=== PATIENT | female | born 1950 | race Caucasian/White ===

== ENCOUNTER 2022-01-09 07:52 | Outpatient (REF) | payer BC, SELFPAY ==
[2022-01-09 10:56] LABS: Estimated Glomerular Filt Rate > 60
[2022-01-09 11:22] LABS: Vitamin D 25-OH Total 22.2 ng/mL (>30)
[2022-01-11 13:51] LABS: Calcium (PTHI) 9.4 mg/dL (8.6-10.4); PTHI 159 pg/mL (16-77)
== END 2022-01-09 07:53 | disposition home or self-care (01) ==
LOC: HO.10HDL 07:52
PROVIDERS: Visit Provider Internal Medicine Endocrinology, Diabetes & Metabolism
DX: E21.0 Primary hyperparathyroidism (principal)
CPT/HCPCS: 36415; 82040; 82306; 82565; 83970

== ENCOUNTER 2022-04-13 10:19 | Outpatient (REF) | payer BC, SELFPAY ==
[2022-04-13 14:37] LABS: Vitamin D 25-OH Total 33.5 ng/mL (>30)
[2022-04-14 13:37] LABS: Calcium (PTHI) 10.6 mg/dL (8.6-10.4); PTHI 130 pg/mL (16-77)
== END 2022-04-13 10:20 | disposition home or self-care (01) ==
LOC: HO.10HDL 10:19
PROVIDERS: Visit Provider Internal Medicine Endocrinology, Diabetes & Metabolism
DX: E21.0 Primary hyperparathyroidism (principal)
CPT/HCPCS: 36415; 82306; 83970

== ENCOUNTER → 2022-05-11 07:42 | Outpatient (BNVA) | payer BC, SELFPAY | PROVIDERS: PCP Internal Medicine; Visit Provider Internal Medicine Endocrinology, Diabetes & Metabolism | DX: Z13.89 Encounter for screening for other disorder (principal) ==

== ENCOUNTER 2022-11-10 14:44 | Outpatient (REF) | payer BC, SELFPAY ==
--- NOTE | ~2022-11-10 | MM_ITS ---
EXAMINATION: BONE DENSITOMETRY CLINICAL INDICATION: Hyperparathyroidism, unspecified. COMPARISON: This is the patient's baseline examination. TECHNIQUE: Using a [employer] DXA System (software version: 13.1) manufactured by [employer], dual-energy x-ray absorptiometry was performed of the lumbar spine and left hip. The images are of good technical quality. Summary results are attached. FINDINGS: LEFT FEMUR, NECK: BMD 0.618 g/cm2, Z-score -1.7, T-score -3.0, osteoporosis. LEFT FEMUR, TOTAL: BMD 0.706 g/cm2, Z-score -1.3, T-score -2.4, osteopenia. AP SPINE L1-L4: BMD 0.913 g/cm2, Z-score -1.2, T-score -2.2, osteopenia. LEFT FOREARM RADIUS 33%: BMD 0.702 g/cm2, Z-score 0.1, T-score -2.0, osteopenia. IDENTIFIED RISK FACTORS: Height loss, hyperparathyroidism, menopause. HISTORY OF FRACTURE: None listed. MEDICATIONS: Calcium supplements or multivitamin, vitamin D. MM/XR DEXA appendicular skeleton IMPRESSION: 1. DIAGNOSIS: Osteoporosis based on the lowest T-score value of -3.0 in the femoral neck applying World Health Organization criteria. 2. 10-YEAR FRACTURE RISK PREDICTION, FRAX: According to the guidelines, FRAX calculation should only be performed on patients in the osteopenia bone density category. Therefore, FRAX was not performed on this patient. 3. Treatment Recommendations: NOF guidelines recommend consideration for treatment in postmenopausal women and men age 50 and older presenting with the following: -A hip or vertebral (clinical or morphometric) fracture. -T-score less than or equal to -2.5 at the femoral neck or spine after appropriate evaluation to exclude secondary causes. -Low bone mass at the hip or spine and a 10-year fracture probability by FRAX of greater than or equal to 3% for hip fracture or greater than or equal to 20% for major osteoporotic fracture based on the [place] adapted WHO algorithm. 4. Other Recommendations: All treatment decisions require clinical judgment and consideration of individual patient factors, including patient preferences, comorbidities, previous drug use, risk factors not captured in the FRAX model (e.g. frailty, falls, vitamin D deficiency, increased bone turnover, interval significant decline in bone density) and possible under or overestimation of fracture risk by FRAX. Additional medical evaluation for secondary cause of low bone mineral density may be appropriate. FUTURE SCAN RECOMMENDATION: People with diagnosed cases of osteoporosis or at high risk for fracture should have regular bone mineral density tests. For patients eligible for Medicare, routine testing is allowed once every 2 years. The testing frequency can be increased to one year for patients who have rapidly progressing disease, those who are receiving or discontinuing medical therapy to restore bone mass, or have additional risk factors.
== END 2022-11-10 14:45 | disposition home or self-care (01) ==
LOC: HO.MAMMO 14:44
PROVIDERS: PCP Internal Medicine; Visit Provider Internal Medicine Endocrinology, Diabetes & Metabolism
DX: Z13.820 Encounter for screening for osteoporosis (principal); E21.3 Hyperparathyroidism, unspecified; Z78.0 Asymptomatic menopausal state
CPT/HCPCS: 77081

== ENCOUNTER → 2022-11-10 15:00 | Outpatient (BNV) | payer BC, SELFPAY | PROVIDERS: PCP Internal Medicine; Visit Provider Radiology Diagnostic Radiology | DX: M85.89 Other specified disorders of bone density and structure, multiple sites (principal) | CPT/HCPCS: 77080; 77081 ==

== ENCOUNTER 2023-02-20 08:44 | Outpatient (AMB) | payer MEDICARE, SELFPAY ==
--- NOTE | 2023-02-20 08:56 | MHC.OFFVIS ---
Intake Vital Signs 02/20/23 08:57 Height 5 ft 1.14 in BMI Reason not done Patient refused/unable BP 128/84 Blood Pressure Location Lt brachial Position Sitting Pulse 73 Pulse Source Pulse Oximeter Intake Visit Reasons: Post surgery Hyperparathyroidism-CONFIRMED Intake Note: Patient present for Post Surgery Hyperparathyroidism follow up. Biometrics Specialist Required: No Accompanied by: Self / Same As Patient Allergies meperidine [From Demerol] Allergy (Unknown, Verified 02/20/23 08:58) Vomiting morphine Allergy (Unknown, Verified 02/20/23 08:58) Vomiting Medication List - Last Reconciled 02/20/23 by Terry Weinstein MD cholecalciferol (vitamin D3) 50 mcg PO DAILY losartan 25 mg PO DAILY multivitamin 1 tab PO DAILY omeprazole 20 mg PO DAILY HPI HPI Comments History of Present Illness Details 72 YO F with PMHx nephrolithiasis who is seen in consultation at the request of PCP for elevated PTH Not Currently using Calcium supplement . Takes MVI but not sure of IU of Vitamin D daily. Currently not using HCTZ. Kidney stones: Yes sees urology Osteoporosis: No History of [place] use: No Biotin use: No Family history of high calcium or kidney stones: Brother has kidney stones Renal imaging: [] DXA: S/P removal of 3 1/2 of glands with preservation of the left inferior for PFSH Medical History (Updated 05/11/22 @ 08:08 by Terry Weinstein MD) Hyperparathyroidism Hyperparathyroid bone disease Surgical History (Updated 02/20/23 @ 08:58 by SUJIT Oshea) Hx of parathyroidectomy History of surgery History of intravascular stent placement History of delivery Family History Mother Dementia Father Cancer of bone Brother History of kidney problems (Updated 05/11/22 @ 07:56 by SUJIT Townsend) Household Members: None Alcohol intake: current Alcohol intake frequency: holidays/special occasions only Patient Tobacco Use Status: Former Tobacco user Assessment & Plan Assessment & Plan (1) Hyperparathyroidism: Code(s): E21.3 - Hyperparathyroidism, unspecified Plan: This 72-year-old white female status post parathyroidectomy with removal of 3-1/2 parathyroid glands. Recent labs show normalization of calcium. Plan is to recheck calcium and PTH. If the above is normal, patient returned to the care of her primary care provider Coding Level of Care Code Est Pt Level 3 (42691) Diagnoses Hyperparathyroidism E21.3
[2023-02-20 08:57] VITALS: BP 128/84; PULSE 73
== END 2023-02-20 09:11 | disposition home or self-care (01) ==
PROVIDERS: PCP Internal Medicine; Visit Provider Internal Medicine Endocrinology, Diabetes & Metabolism
DX: E21.3 Hyperparathyroidism, unspecified (principal)
CPT/HCPCS: 99213

== ENCOUNTER → 2023-02-20 08:44 | Outpatient (BNVA) | payer BC, SELFPAY | PROVIDERS: PCP Internal Medicine; Visit Provider Internal Medicine Endocrinology, Diabetes & Metabolism | DX: E21.3 Hyperparathyroidism, unspecified (principal) | CPT/HCPCS: 99212 ==

== ENCOUNTER 2023-02-20 09:23 | Outpatient (REF) | payer MEDICARE, BC, SELFPAY ==
[2023-02-20 11:01] LABS: Albumin Level 3.7 g/dL (3.5-5.0)
== END 2023-02-20 09:24 | disposition home or self-care (01) ==
LOC: HO.10HDL 09:23
PROVIDERS: Visit Provider Internal Medicine Endocrinology, Diabetes & Metabolism
DX: E21.3 Hyperparathyroidism, unspecified (principal)
CPT/HCPCS: 36415; 82040